=== PATIENT | female | born 1950 | race Caucasian/White ===

== ENCOUNTER → 2021-02-20 | Outpatient (CLI) | payer MEDICARE ==
--- NOTE | 2021-02-20 13:32 | REP ---
INDICATION: LEFT SHOULDER PAIN. COMPARISON: None. TECHNIQUE: Three views of the left shoulder were performed. FINDINGS: The distal clavicle is fractured. The glenohumeral relationship is maintained. IMPRESSION: Fracture of the distal clavicle <Electronically signed by Anand Ortiz > 02/20/21 [id number]
--- NOTE | 2021-02-20 14:03 | REP ---
INDICATION: LEFT SHOULDER PAIN. COMPARISON: None. TECHNIQUE: Two views FINDINGS: There is a distal left clavicle fracture. IMPRESSION: Distal left clavicle fracture. In the absence of trauma this could be a pathological fracture. The only history I have been given is pain. <Electronically signed by Anand Ortiz > 02/20/21 [id number]
== END ==
LOC: M LAB 12:42
PROVIDERS: ATTEND Psychiatry & Neurology Neurology
DX: M25.512 Pain in left shoulder (principal); E53.8 Deficiency of other specified B group vitamins; R41.3 Other amnesia

== ENCOUNTER 2021-02-23 10:14 | Emergency (ER) | payer MEDICARE ==
[~2021-02-23] VITALS: Ht 167.6 cm; Wt 62.0 kg
--- OUTSIDE RECORDS SUMMARY | 2021-02-23 10:20 | CCD | Continuity of Care Document ---
Author Author Rosette JOHN M.D. Organization Unknown Address [address] [place] [address] Phone [phone] Care Team Providers Care Auto Tune Up Mechanic Name Role Phone PabloYola escobar [employer] [phone] Problems Active Problems Provider Date Memory impairment Chelly John M.D. Onset: 09/25/2014 Dementia Chelly John M.D. Onset: 09/25/2014 Mild cognitive disorder Chelly John M.D. Onset: 6 Cerebrovascular disease Chelly John M.D. Onset: 6 Single major depressive episode, in full remission Chelly Musa i, M.D. Onset: 09/07/2015 Generalized anxiety disorder Chelly John M.D. Onset: 08/19 Low back pain Chelly John M.D. 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 Onset: 02/20/2021 Social History Type Date Description Comments Sex Unknown ETOH Use Consumes liquor 2 times per day Tobacco Use Start: Unknown Patient has never smoked Recreational Drug Use Never Used Drugs Allergies and adverse reactions Description No Known Drug Allergies Medications Active Medications SIG Qnty Indications Ordering Provide r Date Memantine HCL 10mg Tablets take 1 tablet by mouth twice daily 180tabs Chelly John M.D. 10/13/2017 Donepezil HCL 10mg Tablets Half a Tab po qam for 2 weeks, then 1 po qam. 90tabs Chelly John M.D. 10/31/2014 Immunizations Description No Information Available Vital Signs Date Vital Result Comment 10/31/2014 11:54am BP Systolic 110 mmHg BP Diastolic 65 mmHg Heart Rate 78 /min Respiratory Rate 16 /min Height 66 inches 5'6" Weight 131.00 lb BMI (Body Mass Index) 21.1 kg/m2 [place] Body Weight 130 lb 09/25/2014 12:13pm BP Systolic 120 mmHg BP Diastolic 65 mmHg Heart Rate 78 /min Respiratory Rate 16 /min Height 66 inches 5'6" Weight 131.00 lb BMI (Body Mass Index) 21.1 kg/m2 [place] Body Weight 130 lb Results Test Acquired Date Facility Test Result H/L Range Note Vitamin B12 & Folate 02/20/2021 [facility] Vitamin B12 Level 724 pg/mL Normal 1 Folate 9.0 NG/ML Normal 2 1 VITAMIN B12 NORMAL RANGE NORMAL 247 - 911 PG/ML INDETERMINATE 211 - 246 PG/ML DEFICIENT LESS THAN 211 PG/ML 2 FOLATE NORMAL RANGE NORMAL GREATER THAN 5.4 NG/ML INDETERMINATE 3.4-5.4 NG/ML DEFICIENT LESS THAN 3.4 NG/ML Procedures Date Code Description Status 02/20/2021 40415 Office/Outpatient Established Mo d MDM 30-39 Min Completed Medical Devices Description No Information Available Encounters Type Date Location Provider Dx Diagnosis Office Visit 02/20/2021 12:15p [facility] Phoebe Wright G31.84 Mild cognitive impairment, so stated F41.1 Generalized anxiety disorder G46.7 Other lacunar syndromes G30.1 Alzheimer's disease with lat e onset Assessments Date Code Description Provider 02/20/2021 G31.84 Mild cognitive impairment, so st ated Chelly John M.D. 02/20/2021 F41.1 Generalized anxiety disorder Fish John M.D. 02/20/2021 G46.7 Other lacunar syndromes Chelly son M.D. 02/20/2021 G30.1 Alzheimer's disease with late on set Chelly John M.D. Plan of Treatment Future Appointment(s):* 04/01/2021 11:00 am - EEG at [facility] * 05/02/2021 11:30 am - Chelly John M.D. at [facility] Functional Status Description No Information Available Mental Status Description No Information Available Referrals Description No Information Available
--- OUTSIDE RECORDS SUMMARY | 2021-02-23 10:20 | CCD | Continuity of Care Document ---
Author Author Rosette JOHN M.D. Organization Unknown Address [address] [place] [address] Phone [phone] Care Team Providers Care Compliance Program Manager Name Role Phone PabloYola escobar [employer] [phone] Problems Active Problems Provider Date Memory impairment [...] lb BMI (Body Mass Index) 21.1 kg/m2 [place] Body Weight 130 lb 09/25/2014 12:13pm BP Systolic 120 mmHg BP Diastolic 65 mmHg Heart Rate 78 /min Respiratory Rate 16 /min Height 66 inches 5'6" Weight 131.00 lb BMI (Body Mass Index) 21.1 kg/m2 [place] Body Weight 130 lb Results Test Acquired Date Facility Test Result H/L Range Note Vitamin B12 & Folate 02/20/2021 [facility] Vitamin B12 Level 724 pg/mL Normal 1 Folate 9.0 NG/ML Normal 2 1 VITAMIN B12 NORMAL RANGE NORMAL 247 - 911 PG/ML INDETERMINATE 211 - 246 PG/ML DEFICIENT LESS THAN 211 PG/ML 2 FOLATE NORMAL RANGE NORMAL GREATER THAN 5.4 NG/ML INDETERMINATE 3.4-5.4 NG/ML DEFICIENT LESS THAN 3.4 NG/ML Procedures Date Code Description Status 02/20/2021 96673 Office/Outpatient Established Mo d MDM 30-39 Min Completed Medical Devices Description No Information Available Encounters Type Date Location Provider Dx Diagnosis Office Visit 02/20/2021 12:15p [facility] Phoebe Wright G31.84 Mild cognitive impairment, so [...] John M.D. Plan of Treatment Future Appointment(s):* 02/25/2021 4:00 pm - MRI at [facility] * 04/01/2021 11:00 am - EEG at [facility] * 05/02/2021 11:30 am - Chelly John M.D. at [facility] Functional Status Description No Information Available Mental Status Description No Information Available Referrals Description No Information Available
--- OUTSIDE RECORDS SUMMARY | 2021-02-23 10:20 | CCD | Continuity of Care Document ---
Author Author Rosette JOHN M.D. Organization Unknown Address [address] [place] [address] Phone [phone] Care Team Providers Care Licensed Aircraft Maintenance Engineer Name Role Phone PabloYola escobar [employer] [phone] Problems Active Problems Provider Date Memory impairment [...] lb BMI (Body Mass Index) 21.1 kg/m2 [place] Body Weight 130 lb 09/25/2014 12:13pm BP Systolic 120 mmHg BP Diastolic 65 mmHg Heart Rate 78 /min Respiratory Rate 16 /min Height 66 inches 5'6" Weight 131.00 lb BMI (Body Mass Index) 21.1 kg/m2 [place] Body Weight 130 lb Results Test Acquired Date Facility Test Result H/L Range Note Vitamin B12 & Folate 02/20/2021 [facility] Vitamin B12 Level 724 pg/mL Normal 1 Folate 9.0 NG/ML Normal 2 1 VITAMIN B12 NORMAL RANGE NORMAL 247 - 911 PG/ML INDETERMINATE 211 - 246 PG/ML DEFICIENT LESS THAN 211 PG/ML 2 FOLATE NORMAL RANGE NORMAL GREATER THAN 5.4 NG/ML INDETERMINATE 3.4-5.4 NG/ML DEFICIENT LESS THAN 3.4 NG/ML Procedures Date Code Description Status 02/20/2021 65615 Office/Outpatient Established Mo d MDM 30-39 Min Completed Medical Devices Description No Information Available Encounters Type Date Location Provider Dx Diagnosis Office Visit 02/20/2021 12:15p [facility] Phoebe Wright G31.84 Mild cognitive impairment, [...] Appointment(s):* 04/01/2021 11:00 am - EEG at [facility] * 05/02/2021 11:30 am - Chelly John M.D. at [facility] Functional Status Description No Information Available Mental Status Description No Information Available Referrals Description No Information Available
--- OUTSIDE RECORDS SUMMARY | 2021-02-23 10:21 | CCD ---
Author Author [facility] Organization [facility] Address Unknown Phone Unavailable Care Team Providers Care Auto Electrical Technician Name Role Phone Chelly John MD Unavailable Unavailable Chelyl John MD Unavailable Unavailable Chelly John MD Unavailable Unavailable Chelly John MD Unavailable Unavailable Chelly John MD Unavailable Unavailable Chelly John MD Unavailable Unavailable Chelly John MD Unavailable Unavailable Chelly John MD Unavailable Unavailable Chelly John MD Unavailable Unavailable Chelly John MD Unavailable Unavailable Chelly John MD Unavailable Unavailable Chelly John MD Unavailable Unavailable Chelly John MD Unavailable Unavailable Chelly John MD Unavailable Unavailable Chelly John MD Unavailable Unavailable Chelly John MD Unavailable Unavailable Chelly John MD Unavailable Unavailable Chelly John MD Unavailable Unavailable Chelly John MD Unavailable Unavailable Chelly John MD Unavailable Unavailable Chelly John MD Unavailable Unavailable Chelly John MD Unavailable Unavailable Chelly John MD Unavailable Unavailable Chelly John MD Unavailable Unavailable Chelly John MD Unavailable Unavailable Chelly John MD Unavailable Unavailable Chelly John MD Unavailable Unavailable Chelly John MD Unavailable Unavailable Chelly John MD Unavailable Unavailable Chelly John MD Unavailable Unavailable Chelly John MD Unavailable Unavailable Chelly John MD Unavailable Unavailable Chelly John MD Unavailable Unavailable Chelly John MD Unavailable Unavailable Chelly John MD Unavailable Unavailable Chelly John MD Unavailable Unavailable Chelly John MD Unavailable Unavailable Chelly John MD Unavailable Unavailable Chelly John MD Unavailable Unavailable Chelly John MD Unavailable Unavailable Chelly John MD Unavailable Unavailable Chelly John MD Unavailable Unavailable Chelly John MD Unavailable Unavailable Chelly John MD Unavailable Unavailable Ali, Chelly MD Unavailable Unavailable Ali, Chelly MD Unavailable Unavailable Ali, Chelly MD Unavailable Unavailable Ali, Chelly MD Unavailable Unavailable Ali, Chelly MD Unavailable Unavailable Ali, Chelly MD Unavailable Unavailable Ali, Chelly MD Unavailable Unavailable Re-disclosure Warning The records that you are about to access may contain information from federally-assisted alcohol or drug abuse programs. If such information is present, then the following federally mandated warning applies: This information has been disclosed to you from records protected by federal confidentiality rules (42 CFR part 2). The federal rules prohibit you from making any further disclosure of this information unless further disclosure is expressly permitted by the written consent of the person to whom it pertains or as otherwise permitted by 42 CFR part 2. A general authorization for the release of medical or other information is NOT sufficient for this purpose. The Federal rules restrict any use of the information to criminally investigate or prosecute any alcohol or drug abuse patient.The records that you are about to access may contain highly sensitive health information, the redisclosure of which is protected by Article 27-F of the [facility] Public Health law. If you continue you may have access to information: Regarding HIV / AIDS; Provided by facilities licensed or operated by the [facility] Office of Mental Health; or Provided by the [facility] Office for People With Developmental Disabilities. If such information is present, then the following [facility] mandated warning applies: This information has been disclosed to you from confidential records which are protected by state law. State law prohibits you from making any further disclosure of this information without the specific written consent of the person to whom it pertains, or as otherwise permitted by law. Any unauthorized further disclosure in violation of state law may result in a fine or penitentiary sentence or both. A general authorization for the release of medical or other information is NOT sufficient authorization for further disc losure. Family History Family Member Name Family Member Gender Family Member Status Date o f Status Description Data Source(s) Unknown Unknown Problem [facility] ([facility]) Encounters Encounter Providers Location Date Indications Data Source(s ) Outpatient Attender: Chelly John MD Main office - [place] 02/20/2021 12:15:00 PM EDT [facility] ([facility]) Immunizations Vaccine Date Status Description Data Source(s) COVID-19 VACCINE Moderna 05/18/2020 12:00:00 AM EST completed [facility] Vaccine Series Complete: NOThis Data was Submitted to [facility] [employer]. INFLUENZA VACCINE QUADRIVALENT 2019- (65 YR UP)/MF59 C.1/PF 12/31/2019 12:00:00 AM EDT completed [facility] Medications Medication Brand Name Start Date Product Form Dose Route Admi nistrative Instructions Pharmacy Instructions Status Indications Reaction Description Data Source(s) 10 mg 02/20/2021 12:00:00 AM EDT tablet 90 TAKE ONE HALF TABLET BY MOUTH EVERY MORNING FOR 2 WEEKS, THEN TAKE ONE TABLET EVERY MORNING TAKE ONE HALF TABLET BY MOUTH EVERY MORNING FOR 2 WEEKS, THEN TAKE ONE TABLET EVERY MORNING SOLD: 02/20/2021 [facility] 240 mcg/0.7 mL 01/09/2021 12:00:00 AM EDT syringe 0 INJECT DIRECTED INJECT DIRECTED SOLD: 01/09/2021 [facility] Insurance Providers Payer name Policy type / Coverage type Policy ID Covered alliance party ID Covered alliance party's relationship to davila Policy Davila Plan Information [facility] OPTIONS [id number] SP [id number] MEDICARE [id number] SP [id number] MEDICARE C [id number] S [id number] AAR O [id number] S [id number] MEDICARE C [id number] S [id number] MEDICARE C [id number] S [id number] D [facility] Health Care Options [facility] Part B [id number] Self [id number] Medicare Natl Gov't Servi Medicare Primary [id number] Self [id number] MEDICARE C UNAVAILABLE [id number] S UNAVAILA BLE [facility] Health Care Options Medigap Part B [id number] Self [id number] Medicare Natl Gov't Servi Medicare Primary [id number] Self 0 [id number] [employer] BCBS B [id number] S [id number] [employer] BC-BS PPO [id number] SP [id number] [employer] BCBS P [id number] S [id number] BC/[place] OF [place] P [id number] S [id number] [employer] BC-BS PPO [id number] SP [id number] Problems, Conditions, and Diagnoses Code Display Name Description Problem Type Effective Dates Data Source(s) G30.1 Alzheimer's disease Alzheimer's disease Problem 1 04/22/2020 12:00:00 AM EDT [facility] ([facility], ) Surgeries/Procedures Procedure Description Date Indications Data Source(s) OFFICE OUTPATIENT VISIT 25 MINUTES 02/20/2021 12:00:00 AM EDT [facility] Results ID Date Data Source [id number] 02/20/2021 01:24:00 PM EDT [facility] ([facility]) Name Value Range Interpretation Code Description Data Laurence rce(s) Supporting Document(s) Vitamin B12 Level 724 pg/mL [facility] ([facility], ) VITAMIN B12 NORMAL RANGE NORMAL 247 - 911 PG/ML INDETERMINATE 211 - 246 PG/ML DEFICIENT LESS THAN 211 PG/ML Folate 9.0 ng/mL [facility] ([facility], ) FOLATE NORMAL RANGE NORMAL GREATER THAN 5.4 NG/ML INDETERMINATE 3.4-5.4 NG/ML DEFICIENT LESS THAN 3.4 NG/ML ID Date Data Source [id number] 01/31/2020 12:00:00 AM EDT [facility] Elizabeth Murray Cnm Patient Name: VIOLETA LOUIS [id number] [facility] Date of : 1950ESE [place] [id number] Date of Exam: 01/31/2020#: Fax: [phone] EXAM: MAMMO SCREENING WITH CADCLINICAL INFORMATION: Screening.Based on the personal and family history information your patient suppliedat the time of imaging, her lifetime risk of breast cancer estimated by theTyrer-Cuzick model is 2.2%. Given that this patient has less than 20% TCrisk score, no further medical management is currently recommended at thistime.Digital screening (2D) mammography was performed bilaterally in the CC andMLO projections. Additionally, breast tomosynthesis (3D mammography) wasperformed bilaterally in the CC and MLO projections. Today's exam wascompared to the prior exam(s).By history, the patient has no complaints of a palpable breast abnormalityor other significant breast complaints.The patient states last clinical breast exam was in February of 2019.The breasts are unchanged in size and shape. Once again, denseheterogeneous fibroglandular elements are seen bilaterally in a stableappearing pattern but to such a degree that the sensitivity of themammogram in detecting cancer is decreased. There are no radu-soft ti ssuedensities or spiculated masses. There is no internal architecturaldistortion. There are no suspicious radu-calcific clusters. Skinthickening or nipple retraction is not present. Benign calcifications areagain seen bilaterally.The Volpara volumetric breast density category is D, the breasts areextremely dense which lowers the sensitivity of mammography.IMPRESSION:BI-RADS Category 2 - Benign Finding(s). Stable mammogram. There is noevidence of malignant alteration of the breasts. Followup examinationrecommended in one year.This mammogram was read with the assistance of [employer] an FDAapproved computer aided detection system for mammography.Negative x-ray reports should not delay surgical consultation if a dominantor clinically suspicious mass is present.Not all breast cancers can be identified by mammography. Therefore, werecommend that you continue to perform regular breast self-examination andphysical examination and then promptly contact your physician of anyconcerns or changes.Adenosis and dense breasts may obscure an underlying neoplasm.DIYA Vargas/Oneyda you for referring VIOLETA LOUIS to our office. Electronically Signed - JACQUE HIGHTOWER DO 01/31/20 13:24 Name Value Range Interpretation Code Description Data Laurence rce(s) Supporting Document(s) Procedure Social History No Information
[2021-02-23] MEDS ORDERED: DONE10TA90 PO (10:23)
[2021-02-23] MEDS ORDERED: MEMA10TA19 PO (10:23)
--- NOTE | 2021-02-23 11:05 | REP ---
INDICATION: TRAUMA. COMPARISON: Shoulder and clavicle series 02/20/2021. TECHNIQUE: Three views. FINDINGS: There is a distal clavicular fracture again noted with slight asymmetric widening of the AC joint. Clavicle is slightly elevated relationship to the acromion. Lateral inferior major fragment is displaced. It appears to maintain its relationship with the inferior margin of the acromion. Humeral head and glenohumeral joint unremarkable. Scapula intact with the visualized ribs and spine intact. IMPRESSION: 1. Distal clavicular fracture with elevation of the clavicle in relationship to the acromion and widening of the AC joint. The large inferior fragment maintains its relationship to the inferior margin of the acromion. I suspect this is because the coracoclavicular ligament remains intact. Appearance is grossly unchanged from 3 days ago. <Electronically signed by Eliceo Pappas > 02/23/21 1106
--- NOTE | 2021-02-23 11:07 | REP ---
INDICATION: TRAUMA. COMPARISON: 02/20/2021 TECHNIQUE: Two views. FINDINGS: Distal clavicular fracture is again seen. There is elevation of the clavicle in relationship to the acromion and slight widening of the AC joint. The inferior-most large fragment is maintaining its relationship to the inferior margin of the acromion. The mid and medial clavicles were unremarkable. Glenohumeral joint and remainder of the scapula ribs and spine visible were unremarkable. IMPRESSION: 1. Distal left clavicular fracture with slight widening of the AC joint elevation of the clavicle in relationship to the acromion. The examination shows no significant interval change from 02/20/2021 in the appearance of the fracture fragments and relationships to the acromion. <Electronically signed by Eliceo Pappas > 02/23/21 1106
--- NOTE | 2021-02-23 11:12 | REP ---
INDICATION: TRAUMA. COMPARISON: Shoulder and clavicle series 02/23 21, 02/20/2021; chest 12/03/2009 TECHNIQUE: Four dedicated left rib views. FINDINGS: The distal left clavicular fracture with mild comminution again seen and unchanged. Humeral head and shaft, scapula ribs and spine are without evidence of acute fracture. There is no pleural thickening, effusion or pneumothorax. No focal rib lesion or displaced fracture evident. Incidentally noted in the right upper quadrant were multiple wire sutures, all of which have fractures of those suture wires. IMPRESSION: No evidence of a rib fracture, effusion, pneumothorax or other acute chest wall finding. Distal left clavicular fracture. <Electronically signed by Eliceo Pappas > 02/23/21 1102
--- OUTSIDE RECORDS SUMMARY | 2021-02-23 11:40 | CCD ---
Author Author [facility] Organization [facility] Address Unknown Phone Unavailable Care Team Providers Care Baby Sitter Name Role Phone Chelly John MD Unavailable Unavailable Chelly John [...] is protected by Article 27-F of the [facility] Public Health law. If you continue you may have access to information: Regarding HIV / AIDS; Provided by facilities licensed or operated by the [facility] Office of Mental Health; or Provided by the [facility] Office for People With Developmental Disabilities. If such information is present, then the following [facility] mandated warning applies: This information has [...] law may result in a fine or snf sentence or both. A general authorization for [...] Attender: Chelly John MD Main office - [place] 02/20/2021 12:15:00 PM EDT [facility] ([facility] Immunizations Vaccine Date Status Description Data Source(s) COVID-19 VACCINE Moderna 05/18/2020 12:00:00 AM EST completed [facility] Vaccine Series Complete: NOThis Data was Submitted to [facility] Via [employer]. INFLUENZA VACCINE QUADRIVALENT 2019- (65 YR UP)/[id number] [...] type / Coverage type Policy ID Covered republican ID Covered republican's relationship to davila Policy Davila Plan Information [facility] OPTIONS [id number] SP [id number] MEDICARE [id number] SP [id number] MEDICARE C [id number] S [id number] AAR O [id number] MEDICARE C [id number] S [id number] MEDICARE C [id number] S [id number] D [facility] Health Care Options [facility] Part B [id number] Self [id number] Medicare Natl Gov't Servi Medicare Primary [id number] Self [id number] MEDICARE C UNAVAILABLE [id number] S UNAVAILA BLE [facility] Health Care Options Medigap Part B [id number] Self [id number] Medicare Natl Gov't Servi Medicare Primary [id number] Self 0 [id number] [employer] B [id number] S [id number] [employer]-BS PPO [id number] SP [id number] [employer] BC[employer] P [id number] BC/BS OF [place] P [id number] S [id number] [employer] BC-BS PPO [id number] SP [id number] Problems, Conditions, and Diagnoses Code Display Name Description Problem Type Effective Dates Data Source(s) G30.1 Alzheimer's disease Alzheimer's disease Problem 1 04/22/2020 12:00:00 AM EDT [facility] ([facility], ) Surgeries/Procedures Procedure Description Date Indications Data Source(s) OFFICE OUTPATIENT VISIT 25 MINUTES 02/20/2021 12:00:00 AM EDT [facility] Results ID Date Data Source [id number] 02/20/2021 01:24:00 PM EDT [facility] ([facility]) Name Value Range Interpretation Code Description Data Laurence rce(s) Supporting Document(s) Vitamin B12 Level 724 pg/mL [facility] ([facility], ) VITAMIN B12 NORMAL RANGE NORMAL 247 - 911 PG/ML INDETERMINATE 211 - 246 PG/ML DEFICIENT LESS THAN 211 PG/ML Folate 9.0 ng/mL [facility] ([facility], ) FOLATE NORMAL RANGE NORMAL GREATER THAN 5.4 NG/ML INDETERMINATE 3.4-5.4 NG/ML DEFICIENT LESS THAN 3.4 NG/ML ID Date Data Source [id number] 01/31/2020 12:00:00 AM EDT [facility] Elizabeth Murray Cnm Patient Name: VIOLETA LOUIS [id number] [facility] Date of : 1950ESE [place] [id number] Date of Exam: 01/31/2020#: Fax: [phone] EXAM: [...] read with the assistance of [employer], an FDAapproved computer aided detection system for [...]
[2021-02-23 12:44] LABS: BASO % 0.5 % (0.0-1.0); EOS % 0.5 % (0.0-3.0); HEMATOCRIT 37.5 % (36.0-47.0); HEMOGLOBIN 12.7 g/dl (12.0-15.5); LYMPH # 1.4 10^3/uL (1.5-5.0); MEAN CORPUSCULAR HEMOGLOBIN 33.1 pg (27.0-33.0); MEAN CORPUSCULAR HGB CONC 33.9 g/dl (32.0-36.5); MEAN CORPUSCULAR VOLUME 97.7 fl (80.0-96.0); MONO # 0.6 10^3/uL (0.0-0.8); MONO % 9.1 % (2.0-8.0); NEUTROPHILS # 4.3 10^3/uL (1.5-8.5); NEUTROPHILS % 67.6 % (36.0-66.0); PLATELET COUNT, AUTOMATED 234 10^3/uL (150-450); RED BLOOD COUNT 3.84 10^6/uL (4.00-5.40); WHITE BLOOD COUNT 6.3 10^3/uL (4.0-10.0)
[2021-02-23] MEDS ORDERED: ISOVUE-370 76% 100ML VIAL As Ordered ONE (13:03)
[2021-02-23 13:33] LABS: ALBUMIN 3.9 GM/DL (3.2-5.2); ALT/SGPT 16 U/L (12-78); BILIRUBIN,DIRECT 0.3 MG/DL (0.0-0.2); BILIRUBIN,TOTAL 1.8 MG/DL (0.2-1.0); LIPASE 398 U/L (73-393); TOTAL PROTEIN 6.9 GM/DL (6.4-8.2)
[2021-02-23 13:36] LABS: FREE T4 1.31 NG/DL (0.76-1.46)
--- NOTE | 2021-02-23 14:03 | REP ---
INDICATION: pathological lesion work up /per Dr. Mills. COMPARISON: Left shoulder and clavicle, left ribs 02/23/2021; CXR 12/03/2009. TECHNIQUE: Bolus 100 mL Isovue 370 scanning through the the chest with coronal and sagittal reconstructions. FINDINGS: The lung pollock are well inflated. There is no pleural effusion, pleural thickening, acute infiltrate, nodule or mass. Some minor subpleural fibrotic changes in the apices and posteriorly in the upper lung zones. The heart is not enlarged. There is no pericardial thickening or effusion. I see no aortic aneurysm or dissection. The main, right and left pulmonary arteries in the mediastinum are without filling defect. That portion of lobar arteries seen was unremarkable as well. No pathologic sized mediastinal, hilar, axillary or supraclavicular adenopathy. The upper abdomen shows that portion of liver to be intact. Gallbladder is surgically absent. Pancreas unremarkable in the segments included in the field of view. There is no splenomegaly or focal splenic lesion. Adrenal glands are normal. Upper poles of the kidneys are intact. The colon shows stool and gas scattered throughout without signs of colitis or diverticulitis. Bone windows show the spine with marginal osteophytes at multiple levels but no compression deformity or destructive lesions. Sternum, manubrium, right clavicle, scapulae, humeral heads and ribs were unremarkable. Left clavicle shows a lateral clavicular fracture. Appears to be some lucency and thinning of cortex in the lateral clavicle raising suspicion for pathologic fracture. However, this is not seen in its entirety because this is a chest CT and not a full shoulder evaluation. IMPRESSION: 1. Mildly comminuted lateral clavicular fracture as noted on shoulder and clavicular series earlier. A lucency suggested with some endosteal cortical thinning in the lateral clavicle but the study is limited in that it is a chest CT not a full shoulder evaluation. Nevertheless, the suspicion is raised. There are no other suspicious cortical, medullary or articular lesions in the bone windows. 2. There is no evidence of lung, mediastinal or other chest soft tissue malignancy or mass. 3. That portion of upper abdomen included is unremarkable. <Electronically signed by Eliceo Pappas > 02/23/21 [id number]
--- NOTE | 2021-02-23 14:11 | REP ---
INDICATION: workout pathological lesion/ [place]. COMPARISON: None. TECHNIQUE: Bolus 100 mL Isovue 370 scanning through the abdomen and pelvis with coronal and sagittal reconstructions. FINDINGS: CT abdomen: The lung bases were clear. Heart not enlarged. There is no pericardial thickening or effusion. I see no hiatal hernia. There is no hepatosplenomegaly, focal hepatic or splenic mass, intrahepatic biliary dilatation nor ascites. Gallbladder surgically absent. The pancreas, adrenal glands, small bowel loops and abdominal portion of colon showed no acute findings. Appendix is surgically absent with a clip near the cecal tip. The aorta is without aneurysm or dissection. No periaortic, mesenteric or other retroperitoneal pathologic sized lymphadenopathy identified. Kidneys show a few cysts without hydronephrosis, stone or solid masses. No hydroureter or ureteral stone. The bone windows show lumbar and lower thoracic regions and including vertebral bodies and posterior elements intact. Visualized lower ribs were unremarkable. CT pelvis: Sacrum, SI joints, pelvis and hips show some degenerative changes without destructive lesion or fracture. There are some synovial herniation pits in the left femoral neck is common benign finding. The bladder is under filled but without mass or stone. Small urachal remnant is seen extending superiorly from the bladder in the midline as anatomic variation. It has no mass. No pelvic free fluid. There is no pelvic mass. Diverticulosis distal left colon and sigmoid without colitis, diverticulitis or mass. Small bowel loops in the pelvis unremarkable. No ventral or inguinal hernia. IMPRESSION: 1. Negative CT abdomen pelvis for mass, adenopathy, bony destructive lesion or acute inflammatory process. There were degenerative changes in the spine and hips. <Electronically signed by Eliceo Pappas > 02/23/21 [id number]
[2021-02-23 14:57] VITALS: BP 155/90
[2021-02-25 09:20] LABS: TOTAL PROTEIN 6.8 GM/DL (6.4-8.2)
[2021-02-25 10:22] LABS: PTH INTACT 30.7 PG/ML (18.5-88.0)
[2021-02-25 10:44] LABS: ALBUMIN 4.37 GM/DL (3.29-5.55); ALBUMIN % 64.3 % (55.8-66.1); ALPHA-1-GLOBULIN % 4.6 % (2.9-4.9); ALPHA-1-GLOBULINS 0.31 GM/DL (0.17-0.41); ALPHA-2-GLOBULINS % 13.3 % (7.1-11.8); BETA-1-GLOBULINS 0.39 GM/DL (0.28-0.60); BETA-1-GLOBULINS % 5.7 % (4.7-7.2); BETA-2-GLOBULINS 0.32 GM/DL (0.19-0.55); BETA-2-GLOBULINS % 4.7 % (3.2-6.5); GAMMA GLOBULIN % 7.4 % (11.1-18.8)
[2021-02-25 10:51] LABS: CA 125 < 2.0 U/ML (<30.2)
== END 2021-02-23 15:25 | disposition home or self-care (01) ==
LOC: M ED 10:14
DX: S42.002A Fracture of unspecified part of left clavicle, initial encounter for closed fracture (principal); S20.212A Contusion of left front wall of thorax, initial encounter; S40.012A Contusion of left shoulder, initial encounter; W19.XXXA Unspecified fall, initial encounter; Y92.89 Other specified places as the place of occurrence of the external cause; Z79.899 Other long term (current) drug therapy
CPT/HCPCS: 36415; 71100; 71260; 73000; 73030; 74177; 80047; 80076; 83690; 83970; 84165; 84439; 84443; 85025; 86304; 99283; Q9967